=== PATIENT | male | born 1965 | race American Indian/Alaskan Native ===

== ENCOUNTER 2017-09-21 07:51 | Outpatient (CLI) | payer BC ==
--- NOTE | 2017-09-21 11:09 | Magnetic Resonance Report ---
MR CERVICAL SPINE WITHOUT CONTRAST HISTORY: Left cervical radiculopathy. TECHNIQUE: Axial T2. Sagittal T1, T2 and STIR. COMPARISON: None at this facility. FINDINGS: The cervical spinal cord is normal size and signal intensity throughout. No abnormal cord signal or central canal stenosis is appreciated. There is straightening of the normal cervical lordosis. This could be secondary to positioning or muscular spasm. Normal height and alignment of the cervical vertebral bodies. Normal bone marrow signal. There is diffuse disc desiccation. Mild disc space narrowing is noted at C4-5, C5-6 and C6-7. Minimal arthritic changes in the facet joints. No hypertrophic changes. C2-3: No abnormality. C3-4: No abnormality. C4-5: Mild posterior and bilateral uncovertebral spurring are identified. No focal herniation. Bilateral neural foraminal narrowing is estimated at 25%. C5-6: Mild posterior and bilateral uncovertebral spurring are identified. No focal herniation. Bilateral neural foraminal narrowing is estimated at 50%. The left neural foramen appears slightly more affected. C6-7: Mild posterior and bilateral uncovertebral spurring are identified. No significant neural foraminal narrowing. C7-T1: No abnormality. IMPRESSION: Straightening of the normal lordosis which could be secondary to positioning or muscular spasm. Cervical spondylosis as described above. C5-6 appears to be the most affected level.
== END 2017-09-21 07:52 | disposition home or self-care (01) ==
LOC: MRI 07:51
DX: M47.22 Other spondylosis with radiculopathy, cervical region (principal); M40.292 Other kyphosis, cervical region
CPT/HCPCS: 72141